=== PATIENT | female | born 1965 | race Caucasian/White ===

== ENCOUNTER 2018-05-05 05:27 | Emergency (ER) | payer BC ==
[~2018-05-05] VITALS: Ht 160 cm; Wt 95.2 kg
[~2018-05-05 05:27] MED LIST: ASPIR 8181 MG PO; LUNESTA3 MG PO; MULTIVITAMINS1 EAC7 PO; NEURONTIN300 MG PO; NORCO 5-325 TA1 EACH PO; PROVENTIL HFA6.7 GM INH; TRAMADOL HCL50 MG PO; TYLENOL WITH C1 EACH PO; VICODIN 5-3001 EACH PO; ZITHROMAX250 MG PO
[2018-05-05] MEDS ORDERED: SUBOXONE 8 MG-1 EAC1 SL (05:44)
[2018-05-05] MEDS ORDERED: HYDROMORPHONE HC4 MG PO (05:44)
[2018-05-05] MEDS ORDERED: XARELTO10 MG PO (05:45)
[2018-05-05] MEDS ORDERED: DILAUDID2 MG PO (07:21)
== END 2018-05-05 08:10 | disposition home or self-care (01) ==
LOC: ED 05:27
DX: T84.84XA Pain due to internal orthopedic prosthetic devices, implants and grafts, initial encounter (principal); F17.210 Nicotine dependence, cigarettes, uncomplicated; Z88.8 Allergy status to other drugs, medicaments and biological substances; Z79.82 Long term (current) use of aspirin; Z79.899 Other long term (current) drug therapy
CPT/HCPCS: 64450; 76942; 96374; 96375; 99283; J1100; J1170; J2405; J2795

== ENCOUNTER 2023-06-02 06:45 | Day surgery (SDC) | payer BC ==
[2023-05-30 08:37] VITALS: BP 137/68
[~2023-06-02] VITALS: Ht 160 cm; Wt 100.0 kg
[~2023-06-02 06:45] MED LIST changes: +DILAUDID2 MG PO; +HYDROMORPHONE HC4 MG PO; +LATUDA80 MG PO; +NUVIGIL250 MG PO; +SEROQUEL25 MG PO; +SERTRALINE HCL100 MG PO; +SUBOXONE 8 MG-1 EAC1 SL; +TRAZODONE HCL100 MG PO; +XARELTO10 MG PO
[2023-06-02 06:56] VITALS: BP 136/58
[2023-06-02 09:42] VITALS: BP 146/74
--- NOTE | 2023-06-02 15:52 | OR ---
[facility] [address], [place] [address] Signed DATE OF OPERATION: 06/02/2023 SURGEON: Josephine White MD PREOPERATIVE DIAGNOSES: 1. Maternal grandfather with colon cancer in his late 70s. 2. Mother with a history of colonic polyps. 3. Personal history of colonic polyps. 4. Internal and external hemorrhoids. 5. Chronic constipation. POSTOPERATIVE DIAGNOSES: 1. A 4 mm polyp at 8 cm in the rectum. 2. Minimal internal hemorrhoids. PROCEDURE: Colonoscopy with hot biopsy. ESTIMATED BLOOD LOSS: None. INDICATIONS: Tonia is a 57-year-old obese female, asked to see me for a follow up colonoscopy. We know her maternal grandfather had colon cancer in his late 70s. Her mother has had multiple colonic polyps removed. Tonia had a colonoscopy in 2012 at age of 46. She is known to have internal and external hemorrhoids. She had several hyperplastic polyps removed and one adenomatous polyp removed in the rectum. In fact, we saw that polypectomy scar today. All her polyps were less than 7 mm in diameter. She also has chronic pain syndrome and a history of methamphetamines and opioid abuse, now on buprenorphine. Consequently, she requires monitored anesthesia care with propofol infusion. She also describes chronic constipation. She is supposed to be on the 5-year rotation due to her personal family history. She told me today she has not had any additional colonoscopy since I met her back in 2011. In the office, I had given her a pamphlet on colonoscopy. She recalls the nature of the test. There is risk including, but not limited to gas bloating, crampy abdominal pain, bleeding, perforation requiring surgery, and missed diagnosis. We had reviewed the written instructions for the bowel prep. She had expressed understanding and wished to proceed. She did receive antibiotics because of her bilateral knee replacements. PROCEDURE NOTE: Electronically Signed By: JOSEPHINE WHITE MD 06/02/23 [address] NAME: TONIA L[address] OPERATIVE REPORT DATE OF : 61 REPORT #: [id number] PHYSICIAN: JOSEPHINE WHITE MD PCP: MORTEZA HAYWOOD MD REPORT IS CONFIDENTIAL AND NOT TO BE RELEASED WITHOUT AUTHORIZATION [facility] [address], [place] [address] Signed Tonia was taken into our endoscopy suite and placed in the left lateral decubitus position. 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 A digital rectal exam was performed. Really not much in the way of external hemorrhoids. She had good sphincter tone. There were no masses. The adult colonoscope was introduced and advanced under direct visualization of camera. It took some abdominal compression to get into the cecum itself. Her prep was moderate. She would do well to have a double bowel prep in the future given her history of chronic constipation. The scope was then slowly withdrawn. We took pictures throughout for photodocumentation. There were no diverticula. We took out one tiny polyp in the mid rectum. Upon retroflexion of scope, she has minimal internal hemorrhoid tissue. After this, the gas was suctioned out, the colonoscope removed. Tonia tolerated the procedure quite well. RECOMMENDATIONS: I will see Tonia back in my office in 7 to 14 days to review her results. She is going to stay on the 5-year rotation. She is advised to use a double bowel prep in the future. She always needs monitored anesthesia care. Josephine White MD ALB/MODL /[id number] cc: MD Morteza Freitas MD Copies: JOSEPHINE WHITE MD, RUSSELL BARR MD ~ Electronically Signed By: JOSEPHINE WHITE MD 06/02/23 [address]IENT NAME: TONIA L[address] OPERATIVE REPORT DATE OF : 61 REPORT #: [id number] PHYSICIAN: JOSEPHINE WHITE MD PCP: MORTEZA HAYWOOD MD REPORT IS CONFIDENTIAL AND NOT TO BE RELEASED WITHOUT AUTHORIZATION
== END 2023-06-02 09:56 | disposition home or self-care (01) ==
LOC: DS 06:45 → OPS 06:45
PROVIDERS: ATTEND Colon & Rectal Surgery
PROC: 0DBP8ZX Excision of Rectum, Via Natural or Artificial Opening Endoscopic, Diagnostic (ICD-10-PCS; principal; 2023-06-02 08:10)
DX: D12.8 Benign neoplasm of rectum (principal); K59.09 Other constipation; K64.0 First degree hemorrhoids; K64.4 Residual hemorrhoidal skin tags; E66.9 Obesity, unspecified; G89.4 Chronic pain syndrome; M19.90 Unspecified osteoarthritis, unspecified site; G47.33 Obstructive sleep apnea (adult) (pediatric); F31.9 Bipolar disorder, unspecified; K21.9 Gastro-esophageal reflux disease without esophagitis; Z68.39 Body mass index [BMI] 39.0-39.9, adult; Z86.010 Personal history of colon polyps; Z80.0 Family history of malignant neoplasm of digestive organs; Z83.71 Family history of colonic polyps
CPT/HCPCS: 00811; J0690; J2704